=== PATIENT | female | born 1975 | race African-American/Black ===

== ENCOUNTER 2017-07-16 08:06 | Day surgery (SDC) | payer OTHER ==
--- NOTE | 2017-07-03 22:41 | HP ---
PREOPERATIVE HISTORY AND PHYSICAL: DATE OF SURGERY: 07/16/17 DATE OF OFFICE VISIT: 06/28/17 ATTENDING SURGEON: Johanna Coleman MD* (dictated by KARAN Tucker). PROCEDURE: Right shoulder arthroscopic rotator cuff repair. CHIEF COMPLAINT: Right shoulder pain. HISTORY OF PRESENT ILLNESS: Juanita is a 41-year-old female who presented to the clinic for ongoing right shoulder pain. She has a history of right shoulder decompression, debridement, distal clavicle excision, and rotator cuff repair with Dr. Coleman. She had a hysterectomy and after the hysterectomy developed shoulder pain. Due to the rotator cuff tear, she failed conservative measures and it was therefore agreed to undergo a right shoulder arthroscopic rotator cuff repair with Dr. Coleman on 07/16/17. PAST MEDICAL HISTORY: Asthma. PAST SURGICAL HISTORY: , left hand surgery, left knee arthroscopy, gallbladder surgery, and right shoulder rotator cuff repair, hysterectomy, and polyp removal x2. She denies complications with anesthesia; however, she does have some mild postoperative nausea. MEDICATIONS: 1. Diclofenac sodium 75 mg one by mouth twice a day as needed for pain. 2. TENS unit apply to shoulder. 3. Valium 5 mg take one by mouth 1-hour prior to the MRI. 4. Cyclobenzaprine 5 mg one tablet by mouth 3 times a day as needed for spasms. 4. Advair Diskus 100-50 mcg per dose, one puff twice a day. 5. ProAir HFA 108 mcg per ACT, 2 puffs every 6 hours as needed. ALLERGIES: No known drug allergies. SOCIAL HISTORY: She works as an vehicle return associate. She denies tobacco use. She drinks alcohol on occasions. She is right-hand dominant. FAMILY HISTORY: Positive for heart disease, stroke, diabetes, hypertension. Her sister had a DVT after an Achilles tendon rupture. There is no other family history of DVT or PE. REVIEW OF SYSTEMS: A 14-point review of systems was reviewed with the patient. Positive for current complaint; otherwise negative. PHYSICAL EXAMINATION GENERAL: A 41-year-old well-developed, well-nourished female, in no acute distress. Alert and oriented x3. Appropriate mood and effect. VITAL SIGNS: Height 67 inches, weight 235 pounds, pulse 70, blood pressure 123/ 71, temperature 96.8, BMI 36.8. HEENT: Normocephalic, atraumatic. PERRLA. Throat clear. NECK: Supple. PULMONARY: Lungs clear to auscultation bilaterally. No wheezing, rhonchi or rales. HEART: Regular rate and rhythm. S1 and S2. No murmurs, gallops or rubs. No edema. ABDOMEN: Positive bowel sounds, soft and nontender. NEURO: Alert and oriented x3. Cranial nerves grossly intact. Sensation is intact to light touch. EXTREMITY: Right upper extremity, skin is intact. Well-healed surgical incision. No warmth or erythema. Mild tenderness to palpation of the AC joint, nontender bicipital groove. Forward flexion 155, abduction 130, external rotation is 65, internal rotation to thoracolumbar spine. +2 radial pulse. Sensation intact to light touch distally. DIAGNOSTIC STUDIES: MR arthrogram revealed partial thickness tearing of the rotator cuff with no obvious full thickness tearing; however, dye did leak into the subacromial space. IMPRESSION: Right shoulder rotator cuff tear. PLAN: The patient is scheduled to undergo a right shoulder arthroscopic rotator cuff repair with Dr. Coleman on 07/16/17. She will return to us in 10 to 14 days postoperatively for followup and suture removal. Percocet was sent to the patient's pharmacy for pain management and Keflex was sent for antibiotic prophylaxis since the patient had prior surgery. KARAN TUCKER [id number]/[facility] #: [id number] MTDD
[~2017-07-16 08:06] MED LIST: Buffered Lidocaine 0.9% SYRIN* 5 ML/SYR SYRINGE INTRADERM ONE; Buffered Lidocaine 0.9% SYRIN* 5 ML/SYR SYRINGE ONE; Metoclopramide TAB* 10 MG ONE; Metoclopramide TAB* 10 MG PO ONE; Naproxen TAB* 250 MG ONE; Naproxen TAB* 250 MG PO ONE; Scopolamine 1.5 mg* PATCH ONE; Scopolamine 1.5 mg* PATCH TRANSDERM ONE; Sodium Citrate/Citric Acid* 15 ML UDC ONE; Sodium Citrate/Citric Acid* 15 ML UDC PO ONE
[2017-07-16] MEDS ORDERED: ceFAZolin 2 GM PREMIX (*) 2 GM/50 ML BAG IVPB ONE (08:21)
[2017-07-16] MEDS ORDERED: Bupivacaine 0.5% W/EPI SDV* 30 ML VIAL ONE (08:49)
[2017-07-16] MEDS ORDERED: fentaNYL* 50 MCG/ML 2 ML VIAL (100 MCG VIAL) ONE (10:00)
[2017-07-16] MEDS ORDERED: Midazolam* 1 MG/ML 2 ML VIAL (2 MG) ONE (10:00)
[2017-07-16] MEDS ORDERED: Succinylcholine* 20 MG/ML 10 ML VIAL ONE (10:15)
[2017-07-16] MEDS ORDERED: Lidocaine 2% PF * 5 ML VIAL ONE (10:15)
[2017-07-16] MEDS ORDERED: Ondansetron INJ* 2 MG/ML VIAL ONE (10:15)
[2017-07-16] MEDS ORDERED: Propofol* 10 MG/ML 20 ML BTL IV PUSH ONE (10:15)
[2017-07-16] MEDS ORDERED: Dexamethasone IV* 4 MG/ML 1 ML (4 MG) ONE (10:15)
[2017-07-16] MEDS ORDERED: DiMENhydriNATE IV* 50 MG/ML VIAL IV PUSH PRN (10:59)
[2017-07-16] MEDS ORDERED: fentaNYL* 50 MCG/ML 2 ML VIAL (100 MCG VIAL) IV PRN (10:59)
[2017-07-16] MEDS ORDERED: HYDROcodone/ACETAMIN 5-325 MG* 1 TAB PO PRN (10:59)
[2017-07-16] MEDS ORDERED: Albuterol 2.5 MG/3 ML NEB.SOL* (0.083%) ONE (12:03)
[2017-07-16] MEDS ORDERED: DiMENhydriNATE IV* 50 MG/ML VIAL ONE (12:51)
[2017-07-16 13:26] VITALS: BP 134/70
[2017-07-16] MEDS ORDERED: Ibuprofen TAB* 600 MG ONE (13:48)
--- NOTE | 2017-07-18 07:22 | OP ---
DATE OF OPERATION: 07/16/17 [facility] DATE OF : 71 ATTENDING SURGEON: Johanna Coleman MD. ASSISTANTS: KARAN Carroll. An personnel security assistant was needed for the entirety of the case to help with positioning and retraction, and was utilized throughout all portions of the case. ANESTHESIOLOGIST: Dr. Sandoval. ANESTHESIA: General with interscalene block. PRE-OP DIAGNOSIS: Right shoulder retear of a previous rotator cuff repair. POST-OP DIAGNOSIS: Partial thickness retear of the rotator cuff as well as a small amount of adhesive capsulitis. OPERATIVE PROCEDURE: Right shoulder arthroscopy with: 1. Lysis of adhesions. 2. Revision rotator cuff repair, double-row fashion. 3. Removal of foreign body x2. COMPLICATIONS: None. ESTIMATED BLOOD LOSS: Minimal. IMPLANTS USED: Two 4.75 Healicoil and 1 Multifix. INDICATIONS: Juanita Bunch is a 41-year-old female who underwent previous rotator cuff repair with distal clavicle excision and subpectoral biceps tenodesis. She was doing okay and slowly recovering and then she had a hysterectomy that was unplanned, after that she is having persistent shoulder pain that was refractory to conservative treatment. She underwent an MRI which diagnosed her with a partial thickness re-tear. Risks and benefits of surgery versus nonoperative treatment were discussed at length and included, but are not limited to, bleeding, infection, damage to nerves, vessels, surrounding structures, wound nonhealing, persistent pain, need for further surgery, scarring, stiffness, incomplete relief of symptoms, and risks of anesthesia. DESCRIPTION OF PROCEDURE: The patient was greeted in the preoperative area by the attending surgeon. Correct extremity was marked, consent was confirmed. The patient was then brought back to the operating suite where she was placed in the supine position on the operating room table. She then underwent interscalene nerve block by the anesthesiologist, after which she underwent general anesthesia with endotracheal intubation. The patient was then placed in the left lateral decubitus position with all bony prominences padded. She was supported with a pegboard. The right shoulder was prepped and draped in the usual sterile fashion with chlorhexidine soap, scrub, and alcohol wipe and a final prep with ChloraPrep. After appropriate surgical pause indicating side and site of procedure, and administration of antibiotics, a standard posterolateral portal was made sharply with an 11-blade. The scope was introduced into the joint and the joint was examined. There was abundant erythema in the shoulder. There was thickening of the capsule anteriorly and interval. The subscapularis appeared to be intact with no obvious tearing. The superior and anterior labrum had mild amount of fraying. There were grade 0 to 1 changes of the glenohumeral joint. The inferior recess was intact. There was undersurface tearing of the supraspinatus tendon and had high- grade partial thickness tearing with sutures visible. The anterior portal was made in an outside-in fashion. The shaver was used to debride back the anterior labrum and the anterior interval capsule was very thick and scarred. Electrocautery device was used to release the scar in the anterior capsule. This helped to mobilize the tissues and made it easier for the partial thickness tear to be visualized. Once this was completed , attention was directed to the subacromial space. The scope was positioned in the subacromial space. There was mild amount of bursitis present. The lateral portal was made in an outside-in fashion. The shaver was used to debride this back which helped to expose the previous tissues. There was obvious scarred healing of the rotator cuff on the bursal side. This was then probed and found to be thin at the level of the previous partial tear and sutures were visualized as well. The undersurface of the acromion was identified and electrocautery was used to debride that. The 11- blade was then used to complete the tear of the rotator cuff. The sutures were identified and then removed. Two of the previously placed rotator cuff sutures were then removed. The rotator cuff was then mobilized and debrided back to stable layer. The greater tuberosity was repaired using electro-cautery device with the arthroscopic timo. The cuff was then mobilized and found to be well approximated. Two anchors were then placed in the medial row with excellent purchase. The awl was then used to make small microfracture of the greater tuberosity to help allow for actual bleeding and healing response. The suture was then passed through the cuff in a horizontal mattress configuration and tied down using arthroscopic knot tie. The remaining of the sutures were then passed through Multifix anchor for lateral row fixation, with excellent purchase. Final images were obtained. The rotator cuff was taken through range of motion and found to be well approximated. The wounds were copiously irrigated with sterile saline. The portals were closed with 3-0 nylon. Sterile dressings were applied. Cryo/Cuff and UltraSling were applied. She was awoken from anesthesia and transferred to PACU in stable condition. POSTOPERATIVE PLAN: She will be nonweightbearing. She will be in the sling for 6 weeks. She will have range of motion of her elbow, wrist, and hand. She will start therapy at 4 weeks and follow up with me in the office in 10 to 14 days. DVT prophylaxis was considered, but deferred due to no previous personal or family history. She will be discharged on pain medications. [id number]/[facility] #: [id number] JORDAN
[2017-07-19] MEDS ORDERED: Scopolamine PATCH Remove* 1 NOTE MISC PATCH OFF ONE (06:00)
== END 2017-07-16 13:58 | disposition home or self-care (01) ==
LOC: OREAST 08:06
PROVIDERS: ATTEND Orthopaedic Surgery
DX: M75.111 Incomplete rotator cuff tear or rupture of right shoulder, not specified as traumatic (principal); M75.01 Adhesive capsulitis of right shoulder; J45.909 Unspecified asthma, uncomplicated
CPT/HCPCS: A9270-GY; C1713; J0330; J0690; J1100; J1240; J2250; J2405; J2704; J3010

== ENCOUNTER 2018-06-03 15:14 | Emergency (ER) | payer BC, OTHER ==
[2018-06-03 15:47] VITALS: BP 143/86
[2018-06-03] MEDS ORDERED: Albuterol/Ipratropium NEB.SOL* Albuterol 2.5 MG/Ipratropium 0.5 MG 3 ML INH ONE (15:48)
--- NOTE | 2018-06-03 15:54 | UC ---
Respiratory Complaint HPI - HPI Summary HPI Summary: The patient is a 42 year old female presenting to with a chief complaint of respiratory issues. For almost 2 weeks now, she has been stuffy, experiencing sinus and chest congestion, chills, intermittent neck and ear pain, and when she coughs she produces yellow phlegm. She has asthma which has been up and down in the past couple of weeks with the weather changes, and also reports seasonal allergies. She has been taking mucinex D which has helped. Pt does not have albuterol - ran out. Pt has been using her advair multiple times a day with little relief. She has been hospitalized for her asthma but has never been intubated - it has been several years. Pt has not been on steroids or antibiotics for more than 1 year. 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 Patients medication reviewed this visit, including her Advair and history of taking albuterol; the patient does not have a nebulizer, does not react negatively to prednisone, and does not get yeast infections with antibiotics. - History of Current Complaint Chief Complaint: UCGeneralIllness Stated Complaint: SINUS CONGESTION, AND SORE THROAT Time Seen by Provider: 06/03/18 15:30 Hx Obtained From: Patient Hx Last Menstrual Period: 04/20/16 ?: No Onset/Duration: Gradual Onset, Lasting Weeks, Still Present Timing: Intermittent Episodes Severity Initially: Mild Severity Currently: None Pain Intensity: 0 Pain Scale Used: 0-10 Numeric Character: Cough: Productive, Sputum Description: - yellow Aggravating Factors: Allergens, Deep Breaths Associated Signs And Symptoms: Positive: Chills, Pleuritic Chest Pain, Wheezing , Nasal Congestion, Sinus Discomfort Related History: Seasonal Allergies, Similar Episode/Dx as: - asthma - Allergies/Home Medications Allergies/Adverse Reactions: Allergies Allergy/AdvReac Type Severity Reaction Status Date / Time Nuts Allergy Severe Airway Uncoded 06/03/18 15:26 Obstruction Acidic Foods Allergy Intermediate Itching Uncoded 06/03/18 15:26 ENVIRONMENTAL/HAYFEVER Allergy Intermediate ITCHY Uncoded 06/03/18 15:26 EYES, NASAL CONGESTION, ASTHMA PMH/Surg Hx/FS Hx/Imm Hx Previously Healthy: No Respiratory History: Asthma Other History Of: Negative For: HIV, Hepatitis B, Hepatitis C, Anticoagulant Therapy - Surgical History Surgical History: Yes Surgery Procedure, Year, and Place: polyps removed from uterus twice, [facility]. 2007 LAPAROSCOPIC CHOLECYSTECTOMY, [facility]. 2005 LEFT knee ARTHROSCOPY surgery, [facility]. 2002 LEFT wrist ARTHROSCOPY surgery, [facility]. 2015 , [facility]. Rt SHOULDER -08/07/16, 07/2017, 2017 ([place]). 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 [employer] [facility] [employer] Alcohol Use: Weekly Alcohol Amount: 1 drink/week Substance Use Type: None Smoking Status (MU): Never Smoked Tobacco Have You Smoked in the Last Year: No - Immunization History Most Recent Influenza Vaccination: Review of Systems Constitutional: Chills ENT: Ear Ache - intermittent, Nasal Discharge, Sinus Pain/Tenderness, Other - intermittent neck pain Respiratory: Shortness Of Breath, Cough Cardiovascular: Chest Pain - discomfort All Other Systems Reviewed And Are Negative: Yes Physical Exam - Summary Physical Exam Summary: Vital Signs Reviewed: Yes A+Ox3, coarse intermitent cough and wheeze Eyes: Conjunctiva Clear, CESAR. EOM intact and full ENT: Hearing grossly normal fuid right ear, mild erythema left TM wnl turbinates boggy an inflammed + PND no exudate, no erythema Neck: Positive: Supple Respiratory: Positive: coarse intermittent cough, scattered wheeze b/l + BS throughout no retractions, speaking full easy sentences Cardiovascular: RRR nl s1, s2 no m/r CBT <2 sec abd soft + BS nt/nd no guarding, no distension Musculoskeletal Exam: TATE x 4 without difficulty Strength Intact, ROM Intact Neurological: Positive: Alert, + sensation throughout Psychological: Positive: Normal Response To Family Skin: Positive: no rash, no ecchymosis Triage Information Reviewed: Yes Vital Signs: Initial Vital Signs Temp 99.4 F 06/03/18 15:19 Pulse 73 06/03/18 15:19 Resp 16 06/03/18 15:19 BP 143/86 06/03/18 15:19 Pulse Ox 100 06/03/18 15:19 Diagnostic Evaluation - Laboratory O2 Sat by Pulse Oximetry: 100 Re-Evaluation - Re-Evaluation 1 Re-Evaluation Time: 16:15 Change: Improved Comment: Pt's lungs are clear, and states she feels better. Pt will be discharged. Rx pred amox, albuterol. strict return precautions. pt in agreement with plan Respiratory Course/Dx - Course Course Of Treatment: Blood pressure noted and recommend follow up with PCP. Pt presents with 2 weeks pregrossive head and sinus congestion, PND and cough now productive with yellow sputum. Pt is an asthmatic - ran out of Albuterol, had been using Advair with little. Pt has also use Mucinex-D. Pt with scattered wheeze and coarse cough on exam. Will give duoneb. reassess - Differential Dx/Diagnosis Provider Diagnoses: acute bronchitis Discharge - Sign-Out/Discharge Documenting (check all that apply): Patient Departure All imaging exams completed and their final reports reviewed: No Studies - Discharge Plan Condition: Stable Disposition: HOME Prescriptions: Albuterol HFA INHALER* [Ventolin HFA Inhaler*] 1 puff INH Q4H PRN #1 mdi PRN Reason: wheeze, cough Amoxicillin PO (*) [Amoxicillin 500 MG CAP*] 500 mg PO Q12H #20 cap predniSONE TAB* [Deltasone TAB*] 50 mg PO DAILY #5 tab Patient Education Materials: Acute Bronchitis (ED) Referrals: Evaristo Moe MD [Primary Care Provider] - Additional Instructions: - Take antibiotics exactly as prescribed until gone - Take prednisone as prescribed until gone - Use your albuterol puffer - 2 puffs ever 4hours for the next 2 days, then every 4 hours as needed for cough and wheeze -Stay well hydrated - avoid excess caffeine and all alcohol - It is recommended you take over the counter anti-histamine - Tory, Zyrtec , Claritin - decongestants such as Sudafed - eat regular, healthy meals - These infections are spread by oral secretions. Do not share eating or drinking utensils. Frequent hand washing is important. Clean items that may get your secretions on them such as cell phones, ipads, computer mouse, television remotes. Once you have been on antbiotics for 2 days, change your pillowcase and your toothbrush -Contact your doctor to arrange a follow-up appointment this week. Call your doctor, return here or go to the emergency department with any questions or concerns - Billing Disposition and Condition Condition: STABLE Disposition: Home - Attestation Statements Document Initiated by Scribe: Yes Documenting Scribe: Michelle Dickey Provider For Whom Julianee is Documenting (Include Credential): Harika Michaud MD. Scribe Attestation: IMichelle, scribed for Harika Michaud MD. on 06/03/18 at 1617. Scribe Documentation Reviewed: Yes Provider Attestation: The documentation as recorded by the scribe, Michelle Dickey accurately reflects the service I personally performed and the decisions made by me, Harika Michaud MD.
== END 2018-06-03 16:20 | disposition home or self-care (01) ==
LOC: UCEAST 15:14
DX: J20.9 Acute bronchitis, unspecified (principal); J45.909 Unspecified asthma, uncomplicated
CPT/HCPCS: 99212; A9270-GY; G0463